=== PATIENT | female | born 1975 | race Caucasian/White ===

== ENCOUNTER 2019-03-13 08:36 | Emergency (ER) | payer BC, OTHER ==
[~2019-03-13] VITALS: Ht 162.6 cm; Wt 69.9 kg
[~2019-03-13 08:36] MED LIST: IBUP-44 PO
[2019-03-13 08:44] VITALS: BP 137/79
--- NOTE | 2019-03-13 08:45 | NUR ---
Pt taken to bed 11.
--- NOTE | 2019-03-13 10:22 | NUR ---
PATIENT PRESENTS TO ED WITH H/A AND LEFT ARM NUMBNESS AND 6/10 PAIN. +NAUSEA, +VOMITTING X3 SINCE 2AM, +CP. SKIN IS PINK/WARM/DRY; AAOX4 WITH EVEN AND STEADY GAIT; LUNGS CLEAR BL; HR EVEN AND REGULAR; PT DENIES ANY FEVER, SOB, OR COUGH AT THIS TIME; PATIENT STATES PAIN OF 6/10 AT THIS TIME; VSS; PATIENT POSITIONED FOR COMFORT; HOB ELEVATED; BEDRAILS UP X2; BED DOWN. ER MD SAW PATIENT.
--- NOTE | 2019-03-13 12:26 | NUR ---
Patient discharged with v/s stable. Written and verbal after care instructions given and explained. Patient verbalized understanding. Ambulatory with steady gait. All questions addressed prior to discharge. Advised to follow up with PMD.
[2019-03-13 12:27] VITALS: BP 119/85
== END 2019-03-13 12:26 | disposition home or self-care (01) ==
LOC: MED 08:36
DX: G44.209 Tension-type headache, unspecified, not intractable (principal); F41.9 Anxiety disorder, unspecified; R03.0 Elevated blood-pressure reading, without diagnosis of hypertension; Z79.1 Long term (current) use of non-steroidal anti-inflammatories (NSAID); Z88.1 Allergy status to other antibiotic agents
CPT/HCPCS: 36415; 84484; 93005; 99284

== ENCOUNTER 2021-08-24 20:31 | Emergency (ER) | payer OTHER, BC ==
[~2021-08-24] VITALS: Ht 157.5 cm; Wt 71.2 kg
[2021-08-24 21:02] VITALS: BP 142/89
--- NOTE | 2021-08-24 22:13 | NUR ---
PT AMBULATED TO BED 08
--- NOTE | 2021-08-24 22:32 | NUR ---
Dr. Suresh examining patient.
[2021-08-24] MEDS ORDERED: KETOROLAC 30 MG/ML VIAL IM ONE (22:35)
--- NOTE | 2021-08-24 22:40 | NUR ---
xray at bedside
[2021-08-24] MEDS ORDERED: NAPR-54 PO (23:12)
[2021-08-24 23:20] VITALS: BP 142/89
== END 2021-08-24 23:20 | disposition home or self-care (01) ==
LOC: MED 20:31
DX: S16.1XXA Strain of muscle, fascia and tendon at neck level, initial encounter (principal); S20.212A Contusion of left front wall of thorax, initial encounter; Z79.1 Long term (current) use of non-steroidal anti-inflammatories (NSAID); Z79.899 Other long term (current) drug therapy; Z88.1 Allergy status to other antibiotic agents; V89.2XXA Person injured in unspecified motor-vehicle accident, traffic, initial encounter; Y93.89 Activity, other specified; Y92.410 Unspecified street and highway as the place of occurrence of the external cause; Y99.8 Other external cause status
CPT/HCPCS: 71045; 96372; 99283; J1885; Q0092